=== PATIENT | male | born 1970 | race Caucasian/White ===

== ENCOUNTER 2024-04-23 13:35 | Emergency (ER) | payer SELFPAY ==
[2024-04-23 13:40] VITALS: BP 148/100; PULSE 80; TEMP 37.2; O2SAT 98; BMI 22.1
--- NOTE | 2024-04-23 13:51 | XR_ITS ---
The [address] [address] Patient Name: DELTA URRUTIA MRN: [id number] date: 1970 Sex: M Assigned Patient Location: ED.MAIN Current Patient Location: ED.MAIN Accession/Order Number: [id number] Exam Date: 04/23/2024 14:00 Report Date: 04/23/2024 14:28 At the request of: MARGARITO HAYDEN Procedure: XR femur RT 2V PROCEDURE: XR femur RT 2V COMPARISON: None. HISTORY: fall FINDINGS: BONES:No fracture, acute abnormality, or significant arthropathy. SOFT TISSUES:Negative. No visible soft tissue swelling. EFFUSION:None visible. OTHER: Negative. XR/XR femur RT 2V IMPRESSION: No acute radiographic abnormality Electronically authenticated by: OBDULIA MENDIETA Date: 04/23/2024 14:28
--- NOTE | 2024-04-23 13:52 | ED_ITS ---
HPI HPI - Extremity Injury (Lower) General Chief Complaint: Extremity Injury, Lower Stated Complaint: LOWER EXTREMITY PAIN, RIGHT Time Seen by Provider: 04/23/24 13:41 Source: patient Mode of arrival: walk-in History of Present Illness HPI Narrative: Patient is a 53-year-old male who presents to the emergency department for persistent pain in the right posterior leg after an injury 1 week ago. He states he tripped over the dog going down the stairs and felt a pull in the back of his right leg. He continues to have pain with sitting and standing but is able to walk. He denies any falls or direct injury. No numbness or tingling to the leg. He has been using ice and [id number] medications without improvement. Related Data Home Medications ?Medication ?Instructions ?Recorded ?Confirmed amlodipine 10 mg tablet 10 mg PO .DAILY 04/23/24 04/23/24 Previous Rx's ?Medication ?Instructions ?Recorded hydrocodone 5 mg-acetaminophen 325 1 tab PO Q6H PRN pain 3 days #12 04/23/24 mg tablet tabs methocarbamol 750 mg tablet 750 mg PO TID PRN pain #20 tabs 04/23/24 methylprednisolone 4 mg tablets in See Rx Instructions .Route 04/23/24 a dose pack (Medrol (Flako)) .COMPLEX #21 ea Allergies Allergy/AdvReac Type Severity Reaction Status Date / Time No Known Drug Allergies Allergy Verified 04/23/24 13:40 Opioid HPI Opioid Management Most Recent Pain and Opioid Data: Last Pain Scale 10 04/23/24 14:12 04/23/24 Last MAR Pain Assessment 04/23/24 14:12 Review of Systems ROS Constitutional Denies: fever or chills Ears, nose, mouth, and throat Denies: throat pain Cardiovascular Denies: chest pain Respiratory Denies: shortness of breath or cough Gastrointestinal Denies: abdominal pain, nausea or vomiting Musculoskeletal Reports: extremity pain and limited range of motion; Denies: back pain, neck pain or extremity swelling Integumentary/Breast Denies: rash Neurological Denies: numbness in extremities or weakness in extremities Hematologic/Lymphatic Denies: easy bruising or easy bleeding PFSH PFSH Social History Little interest or pleasure in doing things: not at all Feeling down, depressed, or hopeless: not at all Exam Narrative Exam Narrative: Gen.: Awake, alert, in no distress Head: Normocephalic, atraumatic ENT: Moist mucous membranes Respiratory: No respiratory distress Extremities: Diffuse mild tenderness of the right posterior thigh with no appreciable swelling, bulging or shortening. No erythema or warmth noted. Pain with going from a seated position to standing, no bony tenderness of the right knee or tibia Psych: Normal mood and affect Neuro: No focal neuro deficit Skin: Warm, dry, intact Constitutional Vital Signs, click to edit/add: Last Vital Signs Temp 98.9 F 04/23/24 13:40 Pulse 80 04/23/24 13:40 Resp 18 04/23/24 13:40 BP 148/100 H 04/23/24 13:40 Pulse Ox 98 04/23/24 13:40 Course Vital Signs Vital signs: Vital Signs Temperature 98.9 F 04/23/24 13:40 Pulse Rate 80 04/23/24 13:40 Respiratory Rate 18 04/23/24 13:40 Blood Pressure 148/100 H 04/23/24 13:40 Pulse Oximetry 98 04/23/24 13:40 Temperature 98.9 F 04/23/24 13:40 Pulse Rate 80 04/23/24 13:40 Respiratory Rate 18 04/23/24 13:40 Blood Pressure 148/100 H 04/23/24 13:40 Pulse Oximetry 98 04/23/24 13:40 MDM - Extremity Injury (Lower) MDM Narrative Medical decision making narrative: X-rays of the femur are unremarkable. Exam is consistent with hamstring injury. Patient treated for symptoms for home with analgesics, muscle relaxant and steroid taper. Crutches given as needed for comfort and the patient is referred to orthopedics on Tuesday at 11 AM. Return to the emergency department if symptoms change or worsen. Rest, ice, gentle stretching SUPERVISED APC VISIT, PHYSICIAN ATTESTATION: Based on the medical record the care appears appropriate. ? Medical Records Attestation: I reviewed the patient's medical records. Imaging Data XR femur: Attestation: I have reviewed the pertinent imaging results. Radiologist's impression: ITS Impressions Femur X-Ray 04/23/24 13:51 IMPRESSION: No acute radiographic abnormality Electronically authenticated by: BODULIA MENDIETA Date: 04/23/2024 14:28 Discharge Plan Discharge Chief Complaint: Extremity Injury, Lower Clinical Impression: Right hamstring muscle strain Patient Disposition: Home, Self-Care Time of Disposition Decision: 14:35 Condition: Good Prescriptions / Home Meds: New hydrocodone-acetaminophen 5-325 mg tablet 1 tab PO Q6H PRN (Reason: pain) 3 Days Qty: 12 0RF Rx Instructions: DX: M79.604 methocarbamol 750 mg tablet 750 mg PO TID PRN (Reason: pain) Qty: 20 0RF methylprednisolone [Medrol (Flako)] 4 mg tablets,dose pack See Rx Instructions .ROUTE .COMPLEX Qty: 21 0RF Rx Instructions: Taper as directed No Action amlodipine 10 mg tablet 10 mg PO .DAILY Patient Comments: DID NOT TAKE TODAY YET Print Language: Mongolian Instructions: Hamstring Injury (ED) Referrals: Physician,Non-Staff, [Primary Care Provider] - 1 week Zeyad Samson MD [Physician] - 04/30/24 11:00 am Discharge Date/Time: 04/23/24 15:02
[2024-04-23] MEDS: KETOROLAC TROMETHAMINE 60 MG/2 ML VIAL IM (14:12)
[2024-04-23] MEDS: METHYLPREDNISOLONE SOD SUCC PF 125 MG/2 ML VIAL IM (14:12)
== END 2024-04-23 15:02 | disposition home or self-care (01) ==
PROVIDERS: Emergency Provider Emergency Medicine; Family Provider Family Medicine
DX: S76.811A Strain of other specified muscles, fascia and tendons at thigh level, right thigh, initial encounter (principal); W01.0XXA Fall on same level from slipping, tripping and stumbling without subsequent striking against object, initial encounter
CPT/HCPCS: 73552; 96372; 99284; J1885; J2919

== ENCOUNTER 2024-05-03 15:11 | Outpatient (OUT) | payer OTHER, SELFPAY ==
--- NOTE | 2024-05-03 15:22 | MR_ITS ---
The [address] [address] Patient Name: DELTA URRUTIA MRN: [id number] date: 1970 Sex: M Assigned Patient Location: MRI Current Patient Location: MRI Accession/Order Number: [id number] Exam Date: 05/03/2024 16:05 Report Date: 05/06/2024 11:13 At the request of: PETE BHAGAT Procedure: MR femur RT wo con EXAM: MR femur RT wo con COMPARISON: Right femur x-rays from 04/23/2024. HISTORY: Pain in the right hamstring and pain throughout the posterior aspect of the right thigh. Evaluate for hamstring muscle strain. History of a hyperextension injury coming down the stairs. TECHNIQUE: Multiplanar and multisequence imaging of the right femur and thigh was performed without contrast. Coronal images include both the right and left femur. FINDINGS: No acute or healing fracture is evident in the right or left femur. The distal femur is excluded from the hiirn-zx-cbce bilaterally. There is no MRI evidence of avascular necrosis involving the femoral heads. There is mild joint space narrowing of the hips bilaterally with trace amount of fluid in the hips bilaterally. No small tyhyn-kc-tybu images of the hips were obtained. The visualized pelvic bones appear intact. The hamstring tendon origin from the ischial tuberosity appears intact bilaterally. No focal muscle edema or muscle strain is identified in the right thigh with attention to the hamstring muscles. There is no asymmetric muscle atrophy. No cystic or solid soft tissue mass is identified. There is no well-defined fluid collection in the right thigh. No focal soft tissue swelling is evident. The iliopsoas tendons insert normally onto the lesser trochanter bilaterally. The gluteal tendon attachment onto the greater trochanter is grossly intact bilaterally with mild enthesopathic change at the gluteal attachments bilaterally. MR/MR femur RT wo con IMPRESSION: 1. No focal muscle edema to suggest muscle strain involving the hamstring muscles on the right. The hamstring tendon origin from the ischial tuberosity appears intact bilaterally. 2. No acute bony abnormality involving the right or left femur. 3. 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 Electronically authenticated by: JOSE LUIS GLEASON Date: 05/06/2024 11:13
== END 2024-05-03 15:12 | disposition home or self-care (01) ==
LOC: MRI 15:14
PROVIDERS: Family Provider Family Medicine; Visit Provider Physician Assistant
DX: S76.311A Strain of muscle, fascia and tendon of the posterior muscle group at thigh level, right thigh, initial encounter (principal)
CPT/HCPCS: 73718

== ENCOUNTER 2024-05-14 09:10 | Outpatient (OUT) | payer OTHER, SELFPAY ==
--- NOTE | 2024-05-14 | XR_ITS ---
The [address] [address] Patient Name: DELTA URRUTIA MRN: [id number] date: 1970 Sex: M Assigned Patient Location: Current Patient Location: Accession/Order Number: [id number] Exam Date: 05/14/2024 09:22 Report Date: 05/16/2024 07:34 At the request of: SOPHIE ANGELES Procedure: XR lumbar spine min 4V EXAMINATION: XR lumbar spine min 4V HISTORY: LUMBAR SPINE PAIN COMPARISON: No relevant comparison available. FINDINGS: BONES: Normal. No significant spondylosis, scoliosis, fracture, or visible bony lesion. DISC SPACES: Normal. No significant disc height narrowing, subluxation, or endplate abnormality. PARASPINOUS: Negative. No paraspinous abnormality is seen. OTHER: Vascular calcifications XR/XR lumbar spine min 4V IMPRESSION: No acute abnormality. No dynamic instability Electronically authenticated by: OBDULIA MENDIETA Date: 05/16/2024 07:34
== END 2024-05-14 09:11 | disposition home or self-care (01) ==
LOC: EC 09:10
PROVIDERS: Family Provider Family Medicine; Visit Provider Orthopaedic Surgery
DX: M54.50 Low back pain, unspecified (principal)
CPT/HCPCS: 72110